=== PATIENT | female | born 2005 | race Caucasian/White ===

== ENCOUNTER 2025-01-26 21:44 | Emergency (ER) | payer OTHER, SELFPAY ==
[2025-01-26 21:50] VITALS: BP 132/73; PULSE 115; RESP 18; TEMP 36.9; O2SAT 97; BMI 24.1
[2025-01-26 22:19] LABS: Carbon Monoxide Refer to POC result
[2025-01-26 22:19] LABS: Carbon Monoxide POC 4.8 %
--- NOTE | 2025-01-27 01:12 | ED.GENADULT ---
HPI - General Adult General Chief complaint: General Medical Stated complaint: Carbon Dioxide exposure Time Seen by Provider: 01/27/25 01:01 History of Present Illness HPI narrative: Patient is a 19-year-old female complained that she was on a bus that had a possible gas leak. Patient was worried she has carbon monoxide poisoning. She has no fever no chills patient does smoke. She is from home patient is not . Related Data Allergies Allergy/AdvReac Type Severity Reaction Status Date / Time No Known Allergies Allergy Verified 01/26/25 21:50 Review of Systems Review of Systems: No fever no chills no headache no cough no congestion no chest pain or shortness of breath Yes all other systems are reviewed and are negative [facility] Past Medical History Attestation statement: The following information was validated with the patient. Social History Social History Advance Directives: No Advance Directives Information Provided: No Do you have a plan to hurt others: No Plan Physical Exam ED Vital Signs: Vital Signs - 24 hr 01/26/25 21:50 Temperature 98.4 F Pulse Rate 115 H Respiratory Rate 18 Blood Pressure 132/73 Pulse Oximetry 97 Oxygen Delivery Method Room Air BMI result Body Mass Index 24.1 Appearance: Alert. Oriented X3. No acute distress. Eyes: Pupils equal, round and reactive to light. ENT: Pharynx normal. Neck: Normal inspection. Neck supple. No lymph nodes noted. No crepitus CVS: Normal heart rate and rhythm. Pulses normal. Normal S1 and S2 Respiratory: No respiratory distress. Breath sounds normal. No Wheezing. No rales Abdomen: Soft and nontender. No rigidity. No distention. good BS x4 Skin: Skin warm and dry. Normal skin color. Normal skin turgor. Extremities: No lower extremity edema. Neurovascular intact to all extremities. No Lacerations. No Rash Neuro: Oriented X 3. No motor deficit. No sensory deficit. Moving all extermities. No slurred speech Medical Decision Making Medical Decision Making MDM Narrative: It has been well-appearing no acute distress. Carbon monoxide level was 4.8. Consistent with patient's history of smoking cigarettes and marijuana. Currently in stable condition. No carbon monoxide poisoning no symptom will discharge home Differential Diagnosis Differential Diagnoses: The differential diagnosis associated with the presentation includes Carbon monoxide poisoning, normal Admission/Observation Consideration of admission/observation: Escalation of care including admission/observation considered Lab Data MDM Lab Attestation statement: I reviewed the patient's lab results. Labs: Lab Results 01/26/25 Range/Units 22:15 Carboxyhemoglobin % 4.8 % Discharge Plan Discharge Clinical Impression: Normal exam Patient Disposition: Home, Self-Care Instructions: Carbon Monoxide Poisoning (ED) Referrals: Physician,None [Primary Care Provider] - 02/01/25 Print Language: Mohawk
[2025-01-27 01:19] VITALS: BP 107/61; PULSE 72; RESP 16; TEMP 36.9; O2SAT 97
== END 2025-01-27 01:19 | disposition home or self-care (01) ==
PROVIDERS: Internal Medicine; Emergency Provider Emergency Medicine Emergency Medical Services
DX: Z71.1 Person with feared health complaint in whom no diagnosis is made (principal); F17.210 Nicotine dependence, cigarettes, uncomplicated; F12.90 Cannabis use, unspecified, uncomplicated
CPT/HCPCS: 36415; 82375; 99282; 99283